=== PATIENT | female | born 1970 | race Caucasian/White ===

== ENCOUNTER 2017-01-17 12:59 | Inpatient (IN) | payer BC ==
[2017-01-17] MEDS ORDERED: cloNIDine 0.1 MG TAB ONE (13:35)
[2017-01-17 13:37] LABS: #Basophils 0.1 thou/uL (0.0-0.2); #Eosinphils 0.3 thou/uL (0.0-0.7); #Lymphocytes 1.4 thou/uL (1.20-3.40); #Monocytes 0.7 thou/uL (0.11-0.59); #Neutrophils 4.5 thou/uL (1.40-6.50); %Basophils 0.9 % (0.0-1.0); %Eosinophils 4.5 % (0.0-10.0); %Lymphocytes 20.2 % (21.0-51.0); %Monocytes 10.1 % (0.0-10.0); Hematocrit 51.1 % (36.0-47.0); Mean Platelet Volume 8.4 fL (7.4-10.4); Red Blood Cell (RBC) Count 5.86 mill/uL (4.20-5.40); White Blood Cell (WBC) Count 7.1 thou/uL (4.8-10.8)
[2017-01-17 13:59] LABS: ALT (SGPT) 18 U/L (8-55); AST (SGOT) 22 U/L (5-34); Alkaline Phosphatase 115 U/L (40-150); Anion Gap 17 mmol/L (10-20); BUN (Urea Nitrogen) 7 mg/dL (7.0-18.7); Bilirubin, Total 0.5 mg/dL (0.2-1.2); CK (CPK) 50 U/L (29-168); Calc. Creatinine Clearance 0 mL/min (70-130); Calcium 9.6 mg/dL (7.8-10.44); Carbon Dioxide 27 mmol/L (22-29); Chloride 101 mmol/L (98-107); Estimated GFR-MDRD 83; Globulin 3.6 g/dL (2.4-3.5); Lipase 65 U/L (8-78); Protein, Total 7.9 g/dL (6.0-8.3); Troponin I Less than 0.010 ng/mL (< 0.028)
--- NOTE | 2017-01-17 14:31 | RAD ---
ONE VIEW CHEST: Comparison: 06-15-14 History: Nausea, diarrhea. FINDINGS: Normal cardiac silhouette. Pulmonary vessels and hilum are normal. No consolidation or mass. No pneum othorax or osseous abnormalities. IMPRESSION: No acute cardiopulmonary process. POS: FARZADH
--- NOTE | 2017-01-17 14:55 | CT ---
NONCONTRAST HEAD CT: Comparison: 11-29-04 Technique: Noncontrast head CT is performed from skull base to skull vertex. FINDINGS: No parenchymal hemorrhage. No extraaxial hematoma. No midline shift. Basilar cisterns are patent. Brain volume is age appropriate. Cortical hernandez white matter differentiation is preserved. Ventricles and sulci are patent and symmetric. Hypodensity in the right aspect of the midbrain and precious, likely representing age indeterminate infar ct. Better interrogation with MRI is recommended. Calvarium is intact. Minimal mucosal thickening of the ethmoid air cells. There is left maxillary sin uses disease. Mastoid air cells are adequately aerated. IMPRESSION: Hypodensity in the right aspect of the midbrain and precious. Indeterminate infarct is suspected. Better interrogation with MRI of the brain is recommended. POS: JOY
[2017-01-17 15:55] LABS: Bilirubin Negative (Negative); Blood, Urine Small (Negative); Glucose, Urine (Dipstick) Negative (Negative); Ketone, Urine Negative (Negative); Nitrite Negative (Negative); Protein, Urine (Dipstick) 30 mg/dL (Neg-Trace)
[2017-01-17 16:05] LABS: RBC/HPF 0-3 HPF (0-3)
[2017-01-17 16:06] LABS: Bacteria/HPF 1+ HPF (None Seen); Yeast-All Forms Rare HPF (None Seen)
[2017-01-17 16:07] LABS: Amphetamine Not Detected (NotDetected); Methadone Not Detected (NotDetected); Methamphetamine Not Detected (NotDetected)
[2017-01-17 16:50] LABS: Troponin I Less than 0.010 ng/mL (< 0.028)
[2017-01-17] MEDS ORDERED: Labetalol HCl 100 MG/20 ML VIAL SLOW IVP PRN ×2 (18:11→19:16)
[2017-01-17] MEDS ORDERED: HYDROcodone/Acetaminophen 5/325 mg Tablet PO PRN (19:16)
[2017-01-17] MEDS ORDERED: Milk Of Magnesia 30 ML UDCUP PO PRN (19:16)
[2017-01-17] MEDS ORDERED: Ondansetron ODT 4 MG TAB PO PRN (19:16)
[2017-01-17] MEDS ORDERED: Lorazepam 1 MG TAB PO PRN (19:16)
[2017-01-17] MEDS ORDERED: Ondansetron HCl/PF 4 MG/2 ML Vial IVP PRN (19:16)
[2017-01-17] MEDS ORDERED: Lorazepam 2 MG/ML VIAL SLOW IVP PRN (19:16)
[2017-01-17] MEDS ORDERED: Acetaminophen 325 MG TAB PO PRN (19:16)
[2017-01-17] MEDS ORDERED: hydrALAZINE 25 MG TAB PO PRN (19:17)
[2017-01-17 19:50] LABS: Troponin I 0.011 ng/mL (< 0.028)
[2017-01-17] MEDS ORDERED: Atorvastatin Calcium 20 MG TAB PO SCH (21:00)
[2017-01-17] MEDS: Famotidine 20 MG TAB PO SCH (21:04)
[2017-01-17] MEDS: Metoprolol Tartrate 50 MG TAB PO SCH (21:05)
--- NOTE | 2017-01-17 23:18 | HP ---
PRIMARY CARE PHYSICIAN: The patient says she is actually in between primary care physicians. CHIEF COMPLAINT: Severe headache and elevated blood pressure. HISTORY OF PRESENT ILLNESS: Ms. Marsh is a pleasant 46-year-old female that has a history of hypert ension. She says she has had hypertension for over 20 years now. She says that she also has a long time history of headaches. She says that for the last 2 days, she has been having a really bad heada aminata and this morning it was much worse. She knows at sometimes the headaches are related to her bloo d pressure being high. For this reason, she checked her blood pressure and noted that it was extreme ly elevated. She says that she took her blood pressure medications and took a clonidine as she had b allann instructed to take it when it is elevated and laid down and to relax to see if it would go down. Normally the clonidine will work, but this time it did not. She says that if she got up and tried t o walk around her blood pressure was spike up. She also felt a pin pricking in her chest and for thi s reason she came to the emergency room for evaluation. She thought she would just be given some blo od pressure medicine and sent home, but instead her blood pressure was extremely high in the low 200 range and she is being admitted for further evaluation. Also, her who came in while we were talking says that he has noticed that his will sometimes have some jerking like movements and sh e looks like she is trying to talk, but she cannot talk and then will basically "fall asleep." He sa ys that this happened about 3 times and 11 years they have been and only last a few seconds, but the patient has no memory of this. It is also noted in the ER, she had a CT scan, which demonstr ated some hypodensities in the right midbrain and precious, which could be an old or an infarct, which wa s age indeterminate. REVIEW OF SYSTEMS: Constitutional: There have been no fevers, no chills, no night sweats, and no we ight loss. HEENT: She has had headaches which are chronic and usually on the right side, no visual changes, no sore throat, no rhinorrhea, neck pain, no adenopathy. Pulmonary: No hemoptysis, no coug h, no wheezing. Cardiovascular: She has had some pinprick like pains in her chest, but no PND, no o rthopnea. Gastrointestinal: No abdominal pain, no nausea, no vomiting, no change in bowels. Genito urinary: No urinary frequency, hematuria, no hesitancy. Neurologic: The patient's noted so me jerking like movements and with sounds almost like a seizure-like activity. Extremities: There i s no swelling, no edema. Skin and Integument: No skin changes. No rash. PAST MEDICAL HISTORY: Significant for hypertension and peptic ulcer disease as well as hypertensive urgency, admissions to the hospital back in 2010 and 2014. PAST SURGICAL HISTORY: She has had bilateral tubal ligation. FAMILY HISTORY: Significant for hypertension in her mother and grandmother as well as diabetes jefry fierros. SOCIAL HISTORY: She smokes about a pack a day. Denies any alcohol use. She is , has 4 child stoney. MEDICATIONS: The patient seemed a little unclear on her medications and her brought some in and these include clonidine 0.1 mg p.r.n., citalopram 40 mg daily, pantoprazole 40 mg daily, furosemi de 20 mg which she takes 1/2 tablet daily, metoprolol 100 mg twice a day, valsartan 160 mg daily, and she says there is a football-looking pill that she takes daily, she believes is guanfacine and she t hinks it is 5 mg and she does admit that she has been out of this medicine for a week. PHYSICAL EXAMINATION: GENERAL: She is alert and oriented. She appears to be in no acute distress. VITAL SIGNS: Her blood pressure when I see her is 190/93, heart rate is in the 80s, respiratory rate of 16, and temperature is 97.4. HEENT: Her pupils are equal, round, and reactive. Extraocular muscles are intact. Her sclerae are anicteric. Throat no erythema, no exudates. NECK: No adenopathy, no bruits. LUNGS: Clear, no wheezing, no rales. CARDIOVASCULAR: She has a normal S1, S2. I did not appreciate an S3 or S4. No murmurs, clicks, no rubs. ABDOMEN: Soft, nontender, nondistended. Positive for bowel sounds. There is no rebound, no guardin g. EXTREMITIES: There is no clubbing, cyanosis, no edema. NEUROLOGIC: Her exam is nonfocal. LABORATORY RESULTS: White blood cell count 7.1, hemoglobin 16.1, hematocrit is 51.1, platelet count is 322. Sodium 141, potassium 3.6, chloride is 101, CO2 is 27, BUN is 7, creatinine 0.75, glucose is 105, natriuretic peptide was elevated at 1045. Urine drug screen is negative. ASSESSMENT AND PLAN: 1. This is a pleasant 46-year-old female that presents to the hospital with hypertensive urgency. S he has a longstanding history of hypertension and in her last hospitalization, she was screened for r enal vascular disease with an ultrasound, which was essentially negative. The patient does continue to smoke, which is likely contributing to the resistant hypertension. She also admits to eating quit e a bit of lunch meats which are processed and could contribute as well and she also has a history of quite a bit of allergy symptoms, which she says are daily and her says that she snores and s he, therefore, may have some undiagnosed sleep apnea contributing to her resistant hypertension and t here may be some compliance issues as well. She will be admitted and started on her usual medication s. Her valsartan dose can be increased up to 320 and we will treat her with p.r.n. hydralazine and l abetalol as needed and titrate her medications. She says she had a bad reaction to amlodipine and th erefore, will avoid calcium channel blockers. 2. Possible acute stroke, it is in the area of the brain that is typically affected with hypertensio n. An MRI will be obtained to complete the evaluation and will also get an echocardiogram and caroti d Dopplers and start her on aspirin daily. 3. Possible seizure activity. She is at risk given that appears as if she has had a prior stroke or possibly even an acute stroke. We will consult Neurology to hear the description of her symptoms an d see if they would agree and whether or not antiepileptic medication is indicated. 4. Tobacco abuse. The patient was counseled on this and the dangers of smoking. 5. Possible undiagnosed obstructive sleep apnea. The patient was instructed to talk this over with her primary care physician and possibly even obtain an outpatient sleep study.
[2017-01-18 05:31] LABS: #Basophils 0.1 thou/uL (0.0-0.2); #Eosinphils 0.3 thou/uL (0.0-0.7); #Lymphocytes 1.8 thou/uL (1.20-3.40); #Monocytes 0.8 thou/uL (0.11-0.59); %Basophils 1.4 % (0.0-1.0); %Lymphocytes 30.5 % (21.0-51.0); %Monocytes 13.1 % (0.0-10.0); Hematocrit 44.2 % (36.0-47.0); Mean Platelet Volume 8.1 fL (7.4-10.4); Red Blood Cell (RBC) Count 4.93 mill/uL (4.20-5.40); White Blood Cell (WBC) Count 5.9 thou/uL (4.8-10.8)
[2017-01-18 05:55] LABS: Anion Gap 11 mmol/L (10-20); BUN (Urea Nitrogen) 8 mg/dL (7.0-18.7); Calc. Creatinine Clearance 112 mL/min (70-130); Calcium 9.1 mg/dL (7.8-10.44); Carbon Dioxide 29 mmol/L (22-29); Chloride 101 mmol/L (98-107); Cholesterol 162 mg/dl (< 200 Desired); Estimated GFR-MDRD Greater than 90; LDL Cholesterol, Calculated 100 mg/dL
--- NOTE | 2017-01-18 07:37 | ULT ---
BILATERAL CAROTID DUPLEX ULTRASOUND: Date: 01/17/17 HISTORY: Acute CVA. FINDINGS: Pillai scale, color flow, Doppler evaluation, and spectral analysis of the bilateral carotid arteries i s performed with 2D imaging. There is minimal atherosclerotic plaque seen in the region of the carotid bulbs bilaterally. There is less than 50% maximal stenosis within the bilateral internal carotid arteries according to t he peak systolic velocities and the ICA/CCA ratios. Peak systolic velocity in the right ICA is 99.7 c m/second, with an ICA/CCA ratio of 1.05. Peak systolic velocity in the left ICA is 86 cm/second, with an ICA/CCA ratio of 0.79. Antegrade flow is demonstrated in vertebral arteries bilaterally. IMPRESSION: No hemodynamically significant stenosis in the bilateral internal carotid arteries. POS: JOY
[2017-01-18] MEDS: Famotidine 20 MG TAB PO SCH (08:27)
[2017-01-18] MEDS: Metoprolol Tartrate 50 MG TAB PO SCH (08:33)
[2017-01-18] MEDS ORDERED: Valsartan 80 MG TAB PO SCH (09:00)
[2017-01-18] MEDS ORDERED: Aspirin 325 mg Enteric Coated Tablet PO SCH (09:00)
[2017-01-18] MEDS ORDERED: Enoxaparin Sodium 40 MG/0.4 ML SYRINGE SC SCH (09:00)
[2017-01-18] MEDS ORDERED: Furosemide 20 MG TAB PO SCH (09:00)
[2017-01-18] MEDS ORDERED: Citalopram 20 MG TAB PO SCH (09:00)
--- NOTE | 2017-01-18 10:07 | CON ---
NEUROLOGY CONSULTATION DATE OF CONSULTATION: 01/18/2017 CONSULTING PHYSICIAN: Hospitalist Service. IMPRESSION: 1. Vascular headache. 2. Labile hypertension with history of episodic encephalopathy secondary to this. PLAN: The patient can be discharged home. HISTORY OF PRESENT ILLNESS: Ms. Marsh is a 46-year-old female with a long history of hypertension. She has had very difficult of blood pressure problems. Her is seen 3 episodes where she suzan ears to be in an encephalopathic state with most seizure-like quality. This lasted a few minutes and then she appears very fatigued afterwards and has been 3 events in many years. Otherwise, she compl ains of some episodic sharp stabbing headaches. She presented to the emergency room yesterday with a headache with some nausea. There are no other focal symptoms associated with it. She had a CT of t he brain done, which showed a questionable area of ischemia in the precious. She had no associated verti go, slurred speech, double vision, vomiting, lateralized weakness or numbness. Her symptoms have res olved. She had a carotid ultrasound done, which showed some minimal alteration of velocities, but no thing significant and her blood pressure has settled down. She has no focal complaints at this point . Her EKG showed left atrial enlargement, left ventricular hypertrophy with a sinus rhythm. Laborat ory studies were unremarkable. PAST MEDICAL HISTORY: Hypertension. MEDICATIONS: As per chart. ALLERGIES: PENICILLIN and LATEX. SOCIAL HISTORY: No tobacco or alcohol use. FAMILY HISTORY: Noncontributory. REVIEW OF SYSTEMS: Otherwise, negative. PHYSICAL EXAMINATION: VITAL SIGNS: Stable. She is afebrile. HEENT: Pupils equal and reactive. Conjunctivae clear. Oropharynx clear. Cranium, normocephalic an d atraumatic. NECK: Supple, no lymphadenopathy noted. EXTREMITIES: No cyanosis, clubbing or edema. NEUROLOGIC: She is alert and appropriate. Her speech is fluent and clear. Her exam is nonfocal. SUMMARY: This is a middle-aged woman who presented with vascular type headache. She has had history of some other episodes associated with extreme hypertension, which I suspect are related to hyperten sive encephalopathy. There is no evidence of a stroke. I think she can be discharged home on curren t medications.
--- NOTE | 2017-01-18 11:16 | PDOC.PN ---
- Subjective Encounter Start Date: 01/18/17 Encounter Start Time: 11:14 Ms. Marsh was seen today in follow-up of elevated blood pressure. - Objective Resuscitation Status: Resuscitation Status FULL:Full Resuscitation MAR Reviewed: Yes Vital Signs & Weight: Vital Signs (12 hours) Temp Pulse Resp BP BP Pulse Ox 01/18/17 08:30 72 16 177/88 H 01/18/17 08:00 97.7 F 72 16 01/18/17 07:43 97.7 F 70 18 96/86 98 01/18/17 06:40 72 158/73 H 01/18/17 05:12 66 180/84 H 01/18/17 05:11 66 180/84 H 01/18/17 04:08 97.6 F 71 16 183/86 H 95 01/18/17 00:19 97.8 F 68 16 186/64 H 96 Weight Weight 144 lb I&O: 01/17/17 01/18/17 01/19/17 06:59 06:59 06:59 Intake Total 600 480 Balance 600 480 Result Diagrams: 01/18/17 05:11 01/18/17 05:11 Phys Exam - Physical Examination HEENT: PERRLA Respiratory: no wheezing, no rales, no rhonchi, clear to auscultation bilateral Cardiovascular: RRR, no significant murmur Gastrointestinal: soft, non-tender, positive bowel sounds Musculoskeletal: no edema Dx/Plan (1) Hypertensive urgency Code(s): I16.0 - HYPERTENSIVE URGENCY Status: Acute (2) Hypertensive encephalopathy Code(s): I67.4 - HYPERTENSIVE ENCEPHALOPATHY Status: Acute (3) Tobacco abuse Code(s): Z72.0 - TOBACCO USE Status: Acute - Plan * Hypertension- not optimally controlled- will continue Diovan at the higher dose, and again stressed smoking cessation, and the avoidance of processed foods , and to be screened for Sleep apnea * Will check Echo, either in house or as outpatient .
[2017-01-18 11:39] VITALS: BP 179/84; TEMP 97.6
--- NOTE | 2017-01-18 15:59 | DIS ---
DATE OF ADMISSION: 01/17/2017 DATE OF DISCHARGE: 01/18/2017 DISCHARGE DISPOSITION: Home. PRIMARY DISCHARGE DIAGNOSES: 1. Hypertensive urgency. 2. Hypertensive encephalopathy. 3. Tobacco abuse. 4. History of peptic ulcer disease. DISCHARGE MEDICATIONS: The patient's Diovan dose was increased from 160 to 320. She is to continue Protonix 40 mg daily, Lopressor 100 mg twice a day, guanfacine 5 mg at bedtime, Lasix 10 mg daily, cl onidine 0.1 mg twice a day as needed, Celexa 40 mg daily, Lipitor 10 mg at bedtime, and aspirin 81 mg a day. CODE STATUS: FULL CODE. ALLERGIES: LASIX and PENICILLIN. PROCEDURES DONE DURING ADMISSION: The patient had bilateral carotid Dopplers, which were negative. The patient also will have an echocardiogram done. HOSPITAL COURSE: Ms. Marsh is a pleasant 46-year-old female, who was admitted to the hospital after having a severe headache and also noted to have an elevated blood pressure. She was admitted for hy pertensive urgency and was treated with p.r.n. labetalol in addition to her usual home medications. Her dose of Diovan was increased from 160 to 320. She smokes about a pack of cigarettes a day and I explained to her that smoking cessation will help her blood pressure get possibly lowered up to 10 to 15 points off the systolic. She also gave some symptoms of chronic allergies, and she may have some undiagnosed obstructive sleep apnea, which could also lower her blood pressure by several points as well, and also, to monitor her consumption of processed foods, which could further lower her pressure . She was seen by Neurology during her hospital stay for some questions on her CT scan, which appear ed consistent with a possible stroke. Dr. Sorenson felt that the changes were not related to ischemic stroke and possibly could be due to hypertensive changes and that an MRI was not necessary. Therefo re, this was canceled. The echo will be done, because she had an elevated natriuretic peptide in the setting of longstanding hypertension. This will be done prior to discharge. Since , if the echo cannot be done within the next few hours we will go ahead and let her go home since she is clinically stable and then the echo can be followed up in the outpatient setting. Therefore, the patient will be discharged home today with close outpatient followup.
== END 2017-01-18 13:10 | disposition home or self-care (01) | DRG 305 ==
LOC: SCSER 12:59 → 2SE 14:55 → OBSVTOIN 14:55
PROVIDERS: ADMIT Internal Medicine Infectious Disease; ATTEND Internal Medicine Infectious Disease
DX: I16.0 Hypertensive urgency (principal); I67.4 Hypertensive encephalopathy; G44.1 Vascular headache, not elsewhere classified; F17.210 Nicotine dependence, cigarettes, uncomplicated; Z91.040 Latex allergy status; Z88.0 Allergy status to penicillin; Z87.11 Personal history of peptic ulcer disease; Z82.61 Family history of arthritis; Z82.49 Family history of ischemic heart disease and other diseases of the circulatory system; Z83.3 Family history of diabetes mellitus
CPT/HCPCS: 36415; 70450; 71010; 80048; 80053; 80061; 80306; 81003; 81015; 82553; 83690; 83880; 84484; 85025; 93005; 93306; 93880; J1650

== ENCOUNTER 2017-07-26 08:10 | Outpatient (CLI) | payer BC ==
[2017-07-26] MEDS ORDERED: ISOVUE-370 76%-LOCM 1 ML ONE (11:40)
== END 2017-07-26 08:11 | disposition home or self-care (01) ==
LOC: BICCT 08:10
PROVIDERS: ATTEND Internal Medicine Hematology & Oncology
DX: C50.411 Malignant neoplasm of upper-outer quadrant of right female breast (principal); R59.0 Localized enlarged lymph nodes; K21.9 Gastro-esophageal reflux disease without esophagitis
CPT/HCPCS: 71260; 74177

== ENCOUNTER 2017-08-21 09:02 | Observation (INO) | payer BC, OTHER ==
[2017-08-21] MEDS ORDERED: Dexamethasone 10 MG/ML VIAL SLOW IVP SCH (09:45)
[2017-08-21] MEDS ORDERED: PALONOSETRON HCL 0.05 MG/ML 5 ML VIAL IVP SCH (09:45)
[2017-08-21] MEDS ORDERED: DOXORUBICIN 100 MG in Sodium Chloride 0.9% 50 ML SLOW IVP SCH (10:00)
[2017-08-21] MEDS ORDERED: Pegfilgrastim 6 MG/0.6 ML Delivery Kit SQ SCH (10:00)
[2017-08-21] MEDS ORDERED: Cyclophosphamide 1 GM in Sodium Chloride 0.9% 250 ML 250 ML IVPB SCH ×2 (10:15→10:30)
[2017-08-21] MEDS ORDERED: Lorazepam 2 MG/ML VIAL SLOW IVP SCH (10:15)
[2017-08-21] MEDS ORDERED: cloNIDine 0.2 MG TAB PO SCH (10:15)
[2017-08-21] MEDS ORDERED: Amlodipine 5 MG TAB PO SCH ×2 (12:15→13:30)
[2017-08-21] MEDS ORDERED: Acetaminophen 500 MG TAB PO SCH (13:30)
[2017-08-21] MEDS ORDERED: cloNIDine 0.1 MG TAB PO PRN (18:02)
[2017-08-21] MEDS ORDERED: Labetalol HCl 100 MG/20 ML VIAL SLOW IVP PRN (18:02)
[2017-08-21] MEDS ORDERED: Ondansetron ODT 4 MG TAB PO PRN (18:17)
[2017-08-21] MEDS ORDERED: Prochlorperazine Maleate 5 MG TAB PO PRN (18:25)
[2017-08-21] MEDS: Sodium Chloride 0.9% 40 ML ONE ×2 (18:45→20:23)
[2017-08-21] MEDS ORDERED: Ondansetron HCl/PF 4 MG/2 ML Vial IVP PRN (18:55)
[2017-08-21] MEDS ORDERED: Acetaminophen 650 MG Suppository PR PRN (18:55)
[2017-08-21] MEDS ORDERED: Bisacodyl 5 MG TAB PO PRN (18:55)
[2017-08-21] MEDS ORDERED: Acetaminophen 325 MG TAB PO PRN (18:55)
[2017-08-21] MEDS ORDERED: Metoclopramide HCl 10 MG/2 ML VIAL IVP PRN (18:56)
[2017-08-21] MEDS ORDERED: diphenhydrAMINE 50 MG/ML VIAL IVP PRN (18:57)
[2017-08-21 19:12] VITALS: BMI 23.1
[2017-08-21] MEDS: Metoprolol Tartrate 100 MG TAB PO SCH (20:21)
[2017-08-21] MEDS: hydrALAZINE 25 MG TAB PO SCH (20:21)
[2017-08-21] MEDS: Docusate 100 MG CAP PO SCH (20:22)
[2017-08-21] MEDS: Ketorolac Tromethamine 30 MG/ML VIAL IVP PRN (20:22)
[2017-08-21] MEDS ORDERED: Famotidine 20 MG TAB PO SCH (21:00)
[2017-08-21] MEDS ORDERED: Atorvastatin Calcium 10 MG TAB PO SCH (21:00)
[2017-08-21] MEDS ORDERED: Metoprolol Tartrate 100 MG TAB PO SCH (21:00)
[2017-08-21] MEDS ORDERED: guanFACINE HCl 1 MG TAB PO SCH (21:00)
[2017-08-22] MEDS: hydrALAZINE 20 MG/ML VIAL SLOW IVP PRN ×2 (00:14→04:43)
--- NOTE | 2017-08-22 02:35 | HP ---
PRIMARY CARE PHYSICIAN: Idalia Grey, sees a new doctor at [facility], she cannot remember the name. REASON FOR ADMISSION: Uncontrolled hypertension. HISTORY OF PRESENT ILLNESS: This is a 47-year-old white female with a longstanding history of difficult to control blood pressure, who has been admitted intermittently in the past for hypertensive urgency, emergency, and headaches. She was recently diagnosed with breast cancer as a large left breast mass, want to see Dr. Tapia and is going to get chemotherapy to shrink the tumor before it can be resected. The patient presented for her first chemotherapy today, her blood pressure was severely elevated with the systolics in the 220s to 250s and diastolics in the 110s to 120s. She was having a headache, although she gets daily headaches and this is not specifically unusual for her. The patient had 2 doses of amlodipine and clonidine 0.2 mg given in Oncology and then we were asked to admit the patient to control the blood pressure to try her chemotherapy tomorrow instead. Patient now that she got to the floor after the initial doses of medicines yesterday, her blood pressure is now 140s systolic. She does report that she has had a problem with amlodipine in the past causing severe abdominal cramping that she is not having any of that currently. PAST MEDICAL HISTORY: 1. Hypertension, poorly controlled. 2. Peptic ulcer disease. 3. Right breast cancer. 4. Questionable elevated cholesterol. PAST SURGICAL HISTORY: Bilateral tubal ligation. SOCIAL HISTORY: The patient smokes a half pack per day, used to smoke a pack per day and is cutting down. No alcohol or illicit drug use. She is in a long- term relationship and has 4 children. FAMILY HISTORY: Significant for hypertension in her mother and grandmother as well as diabetes mellitus. ALLERGIES: 1. LATEX. 2. PENICILLIN. CURRENT MEDICATIONS: 1. Aspirin 81 mg daily. 2. Atorvastatin 10 mg at night. 3. Celexa 40 mg daily. 4. Clonidine 0.1 mg twice a day as needed for severe hypertension. 5. Furosemide 10 mg daily. 6. Guanfacine 5 mg at night. 7. Metoprolol 100 mg twice a day. 8. Zofran 4 mg as needed for nausea. 9. Protonix 40 mg daily. 10. Prochlorperazine 10 mg q.6 hours as needed for nausea and vomiting. 11. Diovan 320 mg daily. REVIEW OF SYSTEMS: Constitutional: No fevers, no chills. Eyes: She has chronic blurred vision. ENT: No congestion, drainage or sore throat. Cardiovascular: No chest pain, no palpitations or racing heart. Pulmonary: No coughing, wheezing or shortness of breath. Gastrointestinal: No abdominal pain, no nausea or vomiting, no diarrhea or constipation. Genitourinary: No dysuria or hematuria. Musculoskeletal: No muscle aches or joint pains. Skin: No rashes or other lesions noted. Neurologic: She does have a headache sharp stabbing pain in her left parietal region, this is chronic for her. She has these headaches almost every day and she relates to her high blood pressure. This is uncertain if it causes them or if it is caused by the high blood pressure. PHYSICAL EXAMINATION: VITAL SIGNS: Blood pressure 140/80, pulse 61, respirations 16, temperature 97.4 , O2 sat 96% on room air. GENERAL: This is a well-developed, thin white female in no acute distress. HEENT: Pupils are equal, round, and reactive to light. Oropharynx clear without lesions, erythema or exudate. NECK: Supple, no lymphadenopathy, no thyroid nodules or enlargement, no JVD. HEART: Regular rate and rhythm, no murmurs, rubs or gallops. LUNGS: Clear to auscultation bilaterally. No wheezes, crackles or rhonchi. ABDOMEN: Soft, nontender to palpation, normoactive bowel sounds. No hepatosplenomegaly, no masses. EXTREMITIES: No clubbing, cyanosis or edema. SKIN: No rashes or lesions noted. NEUROLOGIC: Intact sensation and strength in all extremities. No facial droop. LABORATORY DATA: Complete metabolic panel done earlier today showed a carbon dioxide of 31, BUN of 6, direct bilirubin 0.4, total bilirubin 0.9, AST of 36, alkaline phosphatase of 240 and lactate dehydrogenase 247 and the rest was normal. ASSESSMENT AND PLAN: 1. Hypertensive urgency, now improved after amlodipine and clonidine earlier in the morning. We will resume patient's home blood pressure medications and also going to add hydralazine 3 times a day. The patient is very resistant use of amlodipine due to previous abdominal cramping with it, so will hold off on that one for now. I will give her p.r.n. labetalol if her pulse is at high enough and p.r.n. hydralazine as needed. She may also benefit from another calcium channel em if she can tolerate amlodipine. I am going to get a Cardiology consult for her. She is going to need both inpatient and then later on outpatient better management of her blood pressure. 2. Breast cancer. We will reattempt chemotherapy tomorrow. 3. Active tobacco abuse. [employer] patient and states that she has been cutting down on her cigarettes and now she has set a quit date and we will continue counseling her on and encouraged her to quit smoking during hospitalization. 4. Gastrointestinal prophylaxis. Continue patient's Protonix. 5. Headache, this sounds like migrainous headaches. Apparently, the patient was on hydrocodone frequently with her previous PCP for these, which may have increased the frequency. We will try some IV Reglan with Benadryl here in the hospital and we will also give her a dose of Toradol and some Tylenol. CODE STATUS: I did discuss with the patient. She is a FULL CODE. Should she be incapacitated, she stated that her mother will be her medical decision maker. Her mother's name is Sherley Rachidtyler. ALECIA
[2017-08-22 05:00] LABS: #Basophils 0.1 thou/uL (0.0-0.2); #Eosinphils 0.2 thou/uL (0.0-0.7); #Lymphocytes 1.6 thou/uL (1.20-3.40); #Monocytes 0.5 thou/uL (0.11-0.59); #Neutrophils 4.2 thou/uL (1.40-6.50); %Basophils 0.9 % (0.0-1.0); %Eosinophils 3.2 % (0.0-10.0); %Lymphocytes 24.2 % (21.0-51.0); %Neutrophils 64.8 % (42.0-75.0); Hemoglobin 15.3 g/dL (12.0-16.0); Mean Corpuscular HGB CONC 33.7 g/dL (32.0-36.0); Mean Corpuscular Hemoglobin 28.7 pg (27.0-31.0); Mean Platelet Volume 7.6 fL (7.4-10.4); Platelet Count 268 thou/uL (130-400); RBC Distribution Width 12.8 % (11.5-14.5); Red Blood Cell (RBC) Count 5.34 mill/uL (4.20-5.40); White Blood Cell (WBC) Count 6.5 thou/uL (4.8-10.8)
[2017-08-22 05:17] LABS: Anion Gap 11 mmol/L (10-20); BUN (Urea Nitrogen) 8 mg/dL (7.0-18.7); Calc. Creatinine Clearance 105 mL/min (70-130); Calcium 9.6 mg/dL (7.8-10.44); Carbon Dioxide 31 mmol/L (22-29); Chloride 99 mmol/L (98-107); Estimated GFR-MDRD Greater than 90; Glucose 109 mg/dL (70-105); Potassium 3.1 mmol/L (3.5-5.1); Sodium 138 mmol/L (136-145)
[2017-08-22] MEDS ORDERED: Citalopram 20 MG TAB PO SCH (09:00)
[2017-08-22] MEDS ORDERED: Non-Formulary Item 1 EACH (Valsartan [Diovan] 320 MG) PO SCH (09:00)
[2017-08-22] MEDS ORDERED: Furosemide 20 MG TAB PO SCH (09:00)
[2017-08-22] MEDS ORDERED: Valsartan 80 MG TAB PO SCH (09:00)
[2017-08-22] MEDS: hydrALAZINE 25 MG TAB PO SCH (09:14)
[2017-08-22] MEDS: Docusate 100 MG CAP PO SCH (09:14)
[2017-08-22] MEDS: Metoprolol Tartrate 100 MG TAB PO SCH (09:15)
[2017-08-22] MEDS ORDERED: Cyclophosphamide 1 GM in Sodium Chloride 0.9% 250 ML 250 ML IVPB SCH (09:45)
--- NOTE | 2017-08-22 09:59 | PDOC.PN ---
- Subjective Encounter Start Date: 08/22/17 Encounter Start Time: 10:50 Subjective: Patient's SINGH resolved with Toradol yesterday. Some recurrence this AM. -: BP spiked overnight but better this AM. - Objective Resuscitation Status: Resuscitation Status FULL:Full Resuscitation MAR Reviewed: Yes Vital Signs & Weight: Vital Signs (12 hours) Temp Pulse Resp BP BP Pulse Ox 08/22/17 07:30 97.6 F 64 16 143/80 H 94 L 08/22/17 05:40 66 140/69 08/22/17 04:43 97.5 F L 54 L 14 192/87 H 95 08/22/17 00:16 69 145/87 H 08/22/17 00:14 61 212/108 H 08/22/17 00:10 212/104 H 08/21/17 23:45 97.2 F L 61 16 95 08/21/17 22:10 60 199/115 H Weight Weight 143 lb 6.4 oz I&O: 08/21/17 08/22/17 08/23/17 06:59 06:59 06:59 Intake Total 273 Balance 273 Result Diagrams: 08/22/17 04:42 08/22/17 04:42 Phys Exam - Physical Examination Constitutional: NAD HEENT: moist MMs Respiratory: no wheezing, no rales, no rhonchi Cardiovascular: RRR, no significant murmur Gastrointestinal: soft, non-tender, positive bowel sounds Neurological: non-focal, moves all 4 limbs Psychiatric: normal affect, A&O x 3 Dx/Plan (1) Hypertensive urgency Code(s): I16.0 - HYPERTENSIVE URGENCY Status: Acute Comment: BP labile overnight. Better after morning meds. Asymptomatic. Likely worsened by anxiety about starting chemo yesterday. (2) Breast cancer, right Code(s): C50.911 - MALIGNANT NEOPLASM OF UNSP SITE OF RIGHT FEMALE BREAST Status: Acute Comment: instituting chemotherapy to shrink tumor for resection , Dr. Tapia is the oncologist (3) PUD (peptic ulcer disease) Code(s): K27.9 - PEPTIC ULC, SITE UNSP, UNSP AC OR CHR, W/O HEMOR OR PERF Status: Chronic Comment: on Protonix (4) Hyperlipidemia Code(s): E78.5 - HYPERLIPIDEMIA, UNSPECIFIED Status: Chronic Comment: on statin (5) Migraine Code(s): G43.909 - MIGRAINE, UNSP, NOT INTRACTABLE, WITHOUT STATUS MIGRAINOSUS Status: Acute - Plan cont current plan of care, DVT proph w/SCDs BP improved. Will d/c home after finishing chemotherapy today. F/u with PCP -: and recommend outpatient nephrology for w/u of sources of longstanding -: difficult to control HTN. * . - Discharge Day Encounter end time: 11:10
[2017-08-22] MEDS ORDERED: DOXORUBICIN 100 MG in Sodium Chloride 0.9% 50 ML SLOW IVP SCH (10:00)
[2017-08-22] MEDS ORDERED: Dexamethasone 10 MG/ML VIAL SLOW IVP SCH (10:00)
[2017-08-22] MEDS ORDERED: Pegfilgrastim 6 MG/0.6 ML Delivery Kit SQ SCH (10:00)
[2017-08-22] MEDS ORDERED: Potassium Chloride 20 MEQ TAB PO SCH (10:00)
[2017-08-22] MEDS ORDERED: PALONOSETRON HCL 0.05 MG/ML 5 ML VIAL IVP SCH (10:00)
[2017-08-22] MEDS ORDERED: NIFEdipine XL 60 MG TAB PO SCH (10:30)
[2017-08-22] MEDS: Ketorolac Tromethamine 30 MG/ML VIAL IVP PRN (11:21)
[2017-08-22 11:28] VITALS: BP 133/72
[2017-08-22 12:32] VITALS: TEMP 97.3
--- NOTE | 2017-08-23 02:56 | DIS ---
PRIMARY CARE PHYSICIAN: Idalia motley, sees a doctor at [facility]. REASON FOR ADMISSION: Uncontrolled hypertension. DIAGNOSES AT DISCHARGE: 1. Hypertensive urgency, resolved. 2. Chronic labile hypertension. 3. Hyperlipidemia. 4. Frequent migraines. 5. Peptic ulcer disease. 6. Right breast cancer, instituting chemotherapy. PROCEDURES: None. CONSULTATIONS: None. SUMMARY OF HOSPITAL COURSE: This is a 47-year-old white female, patient of Dr. Tapia, who has a lo ngstanding history of [id number]-[id number] labile hypertension. She is recently diagnosed with a rig ht breast cancer mass, seeing Dr. Tapia who was supposed to institute chemotherapy yesterday to shr ink the mass before surgery. The patient was very anxious when she came in, in spite of an Ativan gi alex by Dr. Tapia. Her blood pressure was repeatedly 250 systolic, as well as severely elevated on the diastolic range. She had clonidine 0.2 mg and 2 doses of amlodipine, and eventually was put in o bservation to try and control her blood pressure before instituting her chemotherapy. We did adjust the patient's medications and started hydralazine orally along with some IV as needed, and after disc ussing with and Dr. Rosario decided to put the patient on Procardia XL, as she has had past med re actions to amlodipine and does not want to take it, but she did not have any of the reported stomach cramps that she gets when she was given amlodipine downstairs. The patient had some labile blood pre ssures overnight as high as 200 systolic. However, this morning, her blood pressure dropped to 140/7 0 and she was able to get her chemotherapy instituted. The patient was doing well and is being disch arged home after chemotherapy. DISCHARGE MANAGEMENT: Discharged home. Follow up with her primary care physician and also consider seeing a security installation technician in the next 2-3 weeks to work up the source of her severe blood pressure elevat ions. Contact information for Dr. Blount was given. The patient also needs followup with the [facility]cology [facility] on 09/04/2017 at 10:15 a.m. her chemotherapy. ACTIVITY: As tolerated. DIET: Healthy heart, low-sodium diet. MEDICATIONS: 1. Aspirin 81 mg daily. 2. Atorvastatin 10 mg at night. 3. Celexa 40 mg daily. 4. Clonidine as needed. 5. Furosemide 10 mg daily. 6. Guanfacine 5 mg at night. 7. Hydralazine 25 mg, 3 times a day, 90 tablets dispensed. 8. Metoprolol 100 mg twice a day. 9. Nifedipine extended release 60 mg daily, 30 tablets dispensed. 10. Zofran as needed. 11. Protonix 40 mg daily. 12. Compazine as needed. 13. Valsartan 320 mg daily.
[2017-08-23] MEDS ORDERED: NIFEdipine XL 60 MG TAB PO SCH (09:00)
== END 2017-08-22 14:34 | disposition home or self-care (01) ==
LOC: ONC/OP 09:02 → 2SW 15:38 → INTOOBSV 15:38
PROVIDERS: ADMIT Internal Medicine Hematology & Oncology; ATTEND Internal Medicine Hematology & Oncology
DX: I16.0 Hypertensive urgency (principal); E78.5 Hyperlipidemia, unspecified; G43.909 Migraine, unspecified, not intractable, without status migrainosus; K27.9 Peptic ulcer, site unspecified, unspecified as acute or chronic, without hemorrhage or perforation; C50.911 Malignant neoplasm of unspecified site of right female breast; K21.9 Gastro-esophageal reflux disease without esophagitis; D64.9 Anemia, unspecified; F17.210 Nicotine dependence, cigarettes, uncomplicated; Z79.82 Long term (current) use of aspirin; Z79.899 Other long term (current) drug therapy; Z91.040 Latex allergy status; Z88.0 Allergy status to penicillin
CPT/HCPCS: 36415; 80048; 80053; 82248; 83615; 84100; 84550; 85025; 96367; 96372; 96375; 96376; 96377; 96413; 96417; 99213; A4216; G0378; G0463; J0360; J1100; J1200; J1453; J1642; J1885; J2060; J2469; J2505; J2765; J7050; J9000; J9070

== ENCOUNTER 2017-09-04 11:57 | Day surgery (SDC) | payer BC, OTHER ==
[2017-09-04] MEDS ORDERED: Dexamethasone 10 MG/ML VIAL SLOW IVP SCH (12:30)
[2017-09-04] MEDS ORDERED: PALONOSETRON HCL 0.05 MG/ML 5 ML VIAL IVP SCH (12:30)
[2017-09-04] MEDS ORDERED: Cyclophosphamide 1 GM in Sodium Chloride 0.9% 250 ML 250 ML IVPB SCH (13:00)
[2017-09-04] MEDS ORDERED: DOXORUBICIN 100 MG in Sodium Chloride 0.9% 50 ML SLOW IVP SCH (13:00)
[2017-09-04] MEDS ORDERED: Sodium Chloride 0.9% 10 ML ONE (13:14)
[2017-09-04 13:22] VITALS: BP 161/93; TEMP 97.9
[2017-09-04] MEDS ORDERED: Pegfilgrastim 6 MG/0.6 ML Delivery Kit SQ SCH (15:00)
== END 2017-09-04 15:58 | disposition home or self-care (01) ==
LOC: ONC/OP 11:57
PROVIDERS: ATTEND Internal Medicine Hematology & Oncology
DX: Z51.11 Encounter for antineoplastic chemotherapy (principal); C50.411 Malignant neoplasm of upper-outer quadrant of right female breast; I10 Essential (primary) hypertension; K21.9 Gastro-esophageal reflux disease without esophagitis; F17.200 Nicotine dependence, unspecified, uncomplicated; Z88.0 Allergy status to penicillin; Z91.040 Latex allergy status; Z79.899 Other long term (current) drug therapy
CPT/HCPCS: 80053; 82248; 83615; 84100; 84550; 96367; 96375; 96377; 96413; 96417; A4216; J1100; J1453; J2469; J2505; J7050; J9000; J9070

== ENCOUNTER 2017-09-18 11:38 | Day surgery (SDC) | payer BC ==
[2017-09-18] MEDS ORDERED: Sodium Chloride 0.9% 30 ML ONE (11:54)
[2017-09-18] MEDS ORDERED: Cyclophosphamide 1 GM in Sodium Chloride 0.9% 250 ML 250 ML IVPB SCH ×2 (12:00→12:15)
[2017-09-18] MEDS ORDERED: PRE FILLED SLOW IVP SCH (12:00)
[2017-09-18] MEDS ORDERED: DOXORUBICIN SLOW IVP SCH (12:00)
[2017-09-18] MEDS ORDERED: Pegfilgrastim 6 MG/0.6 ML Delivery Kit SQ SCH (12:00)
[2017-09-18] MEDS ORDERED: PALONOSETRON HCL 0.05 MG/ML 5 ML VIAL IVP SCH (12:00)
[2017-09-18] MEDS ORDERED: Dexamethasone 10 MG/ML VIAL SLOW IVP SCH (12:00)
[2017-09-18] MEDS ORDERED: DOXORUBICIN 100 MG in Sodium Chloride 0.9% 50 ML SLOW IVP SCH (12:15)
[2017-09-18 13:15] VITALS: BP 155/97; TEMP 97.8
== END 2017-09-18 15:43 | disposition home or self-care (01) ==
LOC: ONC/OP 11:38
PROVIDERS: ATTEND Internal Medicine Hematology & Oncology
DX: Z51.11 Encounter for antineoplastic chemotherapy (principal); C50.411 Malignant neoplasm of upper-outer quadrant of right female breast; K21.9 Gastro-esophageal reflux disease without esophagitis; D64.9 Anemia, unspecified; I10 Essential (primary) hypertension; F17.210 Nicotine dependence, cigarettes, uncomplicated; Z91.040 Latex allergy status; Z88.0 Allergy status to penicillin
CPT/HCPCS: 36415; 80053; 82248; 83615; 84100; 84550; 96367; 96375; 96377; 96413; 96415; 96417; A4216; J1100; J1453; J1642; J2469; J2505; J7050; J9000; J9070

== ENCOUNTER 2017-10-02 12:34 | Day surgery (SDC) | payer BC ==
[2017-10-02] MEDS ORDERED: Dexamethasone 10 MG/ML VIAL SLOW IVP SCH (13:00)
[2017-10-02] MEDS ORDERED: PALONOSETRON HCL 0.05 MG/ML 5 ML VIAL IVPB SCH (13:00)
[2017-10-02] MEDS ORDERED: Pegfilgrastim 6 MG/0.6 ML Delivery Kit SQ SCH (13:00)
[2017-10-02] MEDS ORDERED: DOXORUBICIN 100 MG in Sodium Chloride 0.9% 50 ML IVPB SCH (13:15)
[2017-10-02] MEDS ORDERED: DOXORUBICIN 100 MG in Sodium Chloride 0.9% 50 ML SLOW IVP SCH (13:15)
[2017-10-02] MEDS ORDERED: Cyclophosphamide 1 GM in Sodium Chloride 0.9% 250 ML 250 ML IVPB SCH (13:15)
[2017-10-02 16:06] LABS: Bilirubin Small (Negative); Blood, Urine Negative (Negative); Clarity CLOUDY (Clear); Glucose, Urine (Dipstick) Negative (Negative); Leukocyte Moderate (Negative); Nitrite Positive (Negative); Protein, Urine (Dipstick) 100 mg/dL (Neg-Trace); Specific Gravity, Urine 1.023 (1.002-1.036)
[2017-10-02 16:08] LABS: Bacteria/HPF Rare-Few HPF (None Seen); Hyaline Casts/LPF 0-3 HYALINE CAST LPF (0-3 Hyaline); Pathc Cast-AUWi Flag 0.29 (0-2.49)
[2017-10-02 16:17] LABS: RBC/HPF 0-3 HPF (0-3)
== END 2017-10-02 16:04 | disposition home or self-care (01) ==
LOC: ONC/OP 12:34
PROVIDERS: ATTEND Internal Medicine Hematology & Oncology
DX: Z51.11 Encounter for antineoplastic chemotherapy (principal); C50.411 Malignant neoplasm of upper-outer quadrant of right female breast; K21.9 Gastro-esophageal reflux disease without esophagitis; D64.9 Anemia, unspecified; I10 Essential (primary) hypertension; F17.210 Nicotine dependence, cigarettes, uncomplicated; Z91.040 Latex allergy status; Z88.0 Allergy status to penicillin; Z79.899 Other long term (current) drug therapy
CPT/HCPCS: 36415; 80053; 81001; 82248; 83615; 84100; 84550; 96367; 96375; 96377; 96413; 96417; J1100; J1453; J2469; J2505; J7050; J9000; J9070

== ENCOUNTER 2017-10-23 11:55 | Day surgery (SDC) | payer BC ==
[2017-10-23] MEDS ORDERED: PACLitaxel 140 MG in Sodium Chloride 0.9% 250 ML 250 ML IVPB SCH (12:30)
[2017-10-23] MEDS ORDERED: Dexamethasone 10 MG/ML VIAL SLOW IVP SCH (12:30)
[2017-10-23] MEDS ORDERED: Sodium Chloride 0.9% 30 ML ONE (12:38)
[2017-10-23] MEDS ORDERED: Dexamethasone 10 MG in Sodium Chloride 0.9% 50 ML IVPB SCH (12:45)
[2017-10-23 15:39] VITALS: BP 145/96; TEMP 97.8
== END 2017-10-23 15:54 | disposition home or self-care (01) ==
LOC: ONC/OP 11:55
PROVIDERS: ATTEND Internal Medicine Hematology & Oncology
DX: Z51.11 Encounter for antineoplastic chemotherapy (principal); C50.411 Malignant neoplasm of upper-outer quadrant of right female breast; Z88.0 Allergy status to penicillin; Z91.040 Latex allergy status
CPT/HCPCS: 80053; 82248; 83615; 84100; 84550; 96375; 96413; A4216; J1100; J1642; J7050; J9267

== ENCOUNTER 2017-10-30 15:20 | Day surgery (SDC) | payer BC ==
[2017-10-30] MEDS ORDERED: Sodium Chloride 0.9% 20 ML ONE (15:26)
[2017-10-30] MEDS ORDERED: PACLitaxel 140 MG in Sodium Chloride 0.9% 250 ML 250 ML IVPB SCH (15:30)
[2017-10-30] MEDS ORDERED: Dexamethasone 4 mg/ml Vial SLOW IVP SCH (15:30)
[2017-10-30 15:31] VITALS: TEMP 98.3
[2017-10-30] MEDS ORDERED: cloNIDine 0.2 MG TAB PO SCH (15:45)
[2017-10-30 16:12] VITALS: BP 181/103
== END 2017-10-30 17:57 | disposition home or self-care (01) ==
LOC: ONC/OP 15:20
PROVIDERS: ATTEND Internal Medicine Hematology & Oncology
DX: Z51.11 Encounter for antineoplastic chemotherapy (principal); C50.411 Malignant neoplasm of upper-outer quadrant of right female breast; Z88.0 Allergy status to penicillin; Z91.040 Latex allergy status
CPT/HCPCS: 96375; 96413; A4216; J1100; J1642; J7050; J9267

== ENCOUNTER 2017-11-06 14:16 | Day surgery (SDC) | payer BC ==
[2017-11-06 14:39] VITALS: BP 139/84; TEMP 98.2
[2017-11-06] MEDS ORDERED: Sodium Chloride 0.9% 30 ML ONE (14:39)
[2017-11-06] MEDS ORDERED: Dexamethasone 10 MG in Sodium Chloride 0.9% 50 ML IVPB SCH (14:45)
[2017-11-06] MEDS ORDERED: PACLitaxel 140 MG in Sodium Chloride 0.9% 250 ML 250 ML IVPB SCH (14:45)
== END 2017-11-06 16:54 | disposition home or self-care (01) ==
LOC: ONC/OP 14:16
PROVIDERS: ATTEND Internal Medicine Hematology & Oncology
DX: Z51.11 Encounter for antineoplastic chemotherapy (principal); C50.411 Malignant neoplasm of upper-outer quadrant of right female breast; K21.9 Gastro-esophageal reflux disease without esophagitis; I10 Essential (primary) hypertension; F17.210 Nicotine dependence, cigarettes, uncomplicated; Z79.82 Long term (current) use of aspirin; Z79.899 Other long term (current) drug therapy; Z88.0 Allergy status to penicillin; Z91.040 Latex allergy status; Z17.1 Estrogen receptor negative status [ER-]
CPT/HCPCS: 96375; 96413; A4216; J1100; J1642; J7050; J9267

== ENCOUNTER 2017-11-20 15:35 | Day surgery (SDC) | payer BC ==
[2017-11-20] MEDS ORDERED: PACLitaxel 140 MG in Sodium Chloride 0.9% 250 ML 250 ML IVPB SCH (16:00)
[2017-11-20] MEDS ORDERED: Dexamethasone 10 MG in Sodium Chloride 0.9% 50 ML IVPB SCH (16:00)
[2017-11-20] MEDS ORDERED: Sodium Chloride 0.9% 20 ML ONE (16:10)
[2017-11-20] MEDS ORDERED: cloNIDine 0.2 MG TAB PO SCH (16:30)
[2017-11-20 18:50] VITALS: TEMP 98.2
[2017-11-20 19:01] VITALS: BP 220/139
== END 2017-11-20 19:03 | disposition home or self-care (01) ==
LOC: ONC/OP 15:35
PROVIDERS: ATTEND Internal Medicine Hematology & Oncology
DX: Z51.11 Encounter for antineoplastic chemotherapy (principal); C50.411 Malignant neoplasm of upper-outer quadrant of right female breast; K21.9 Gastro-esophageal reflux disease without esophagitis; I10 Essential (primary) hypertension; F17.210 Nicotine dependence, cigarettes, uncomplicated; Z79.82 Long term (current) use of aspirin; Z79.899 Other long term (current) drug therapy; Z88.0 Allergy status to penicillin; Z91.040 Latex allergy status
CPT/HCPCS: 36415; 80053; 82248; 83615; 84100; 84550; 96375; 96413; A4216; J1100; J1642; J7050; J9267

== ENCOUNTER 2017-11-27 12:09 | Day surgery (SDC) | payer BC ==
[2017-11-27] MEDS ORDERED: Sodium Chloride 0.9% 40 ML ONE (12:27)
[2017-11-27] MEDS ORDERED: PACLitaxel 140 MG in Sodium Chloride 0.9% 250 ML 250 ML IVPB SCH (12:30)
[2017-11-27] MEDS ORDERED: Dexamethasone 4 mg/ml Vial SLOW IVP SCH (12:30)
[2017-11-27 12:31] VITALS: BP 144/82; TEMP 98.9
[2017-11-27] MEDS ORDERED: Lorazepam 2 MG/ML VIAL SLOW IVP SCH (14:45)
== END 2017-11-27 14:50 | disposition home or self-care (01) ==
LOC: ONC/OP 12:09
PROVIDERS: ATTEND Internal Medicine Hematology & Oncology
DX: Z51.11 Encounter for antineoplastic chemotherapy (principal); C50.411 Malignant neoplasm of upper-outer quadrant of right female breast; D64.9 Anemia, unspecified; I10 Essential (primary) hypertension; K21.9 Gastro-esophageal reflux disease without esophagitis; F17.200 Nicotine dependence, unspecified, uncomplicated; Z79.899 Other long term (current) drug therapy; Z88.0 Allergy status to penicillin; Z91.040 Latex allergy status
CPT/HCPCS: 96375; 96413; A4216; J1100; J1642; J7050; J9267

== ENCOUNTER 2017-12-04 12:26 | Day surgery (SDC) | payer BC ==
[2017-12-04 12:39] VITALS: BP 147/108; TEMP 98.1
[2017-12-04] MEDS ORDERED: Dexamethasone 4 mg/ml Vial SLOW IVP SCH (12:45)
[2017-12-04] MEDS ORDERED: PACLitaxel 140 MG in Sodium Chloride 0.9% 250 ML 250 ML IVPB SCH (12:45)
== END 2017-12-04 15:26 | disposition home or self-care (01) ==
LOC: ONC/OP 12:26
PROVIDERS: ATTEND Internal Medicine Hematology & Oncology
DX: Z51.11 Encounter for antineoplastic chemotherapy (principal); C50.411 Malignant neoplasm of upper-outer quadrant of right female breast; K21.9 Gastro-esophageal reflux disease without esophagitis; I10 Essential (primary) hypertension; F17.210 Nicotine dependence, cigarettes, uncomplicated; Z17.1 Estrogen receptor negative status [ER-]; Z79.899 Other long term (current) drug therapy; Z88.0 Allergy status to penicillin; Z91.040 Latex allergy status
CPT/HCPCS: 96375; 96413; J1100; J1642; J7050; J9267

== ENCOUNTER 2017-12-11 13:25 | Day surgery (SDC) | payer BC ==
[2017-12-11] MEDS ORDERED: Dexamethasone 4 MG in Sodium Chloride 0.9% 50 ML SLOW IVP SCH (13:45)
[2017-12-11] MEDS ORDERED: PACLitaxel 140 MG in Sodium Chloride 0.9% 250 ML 250 ML IVPB SCH (13:45)
[2017-12-11] MEDS ORDERED: Sodium Chloride 0.9% 20 ML ONE (14:35)
== END 2017-12-11 16:05 | disposition home or self-care (01) ==
LOC: ONC/OP 13:25
PROVIDERS: ATTEND Internal Medicine Hematology & Oncology
DX: Z51.11 Encounter for antineoplastic chemotherapy (principal); C50.411 Malignant neoplasm of upper-outer quadrant of right female breast; I10 Essential (primary) hypertension; D64.9 Anemia, unspecified; K21.9 Gastro-esophageal reflux disease without esophagitis; F17.200 Nicotine dependence, unspecified, uncomplicated; Z79.899 Other long term (current) drug therapy
CPT/HCPCS: 96375; 96413; J1100; J1642; J7050; J9267

== ENCOUNTER 2017-12-18 11:53 | Day surgery (SDC) | payer BC ==
[2017-12-18] MEDS ORDERED: PACLitaxel 140 MG in Sodium Chloride 0.9% 250 ML 250 ML IVPB SCH (12:15)
[2017-12-18] MEDS ORDERED: Dexamethasone 10 MG/ML VIAL SLOW IVP SCH (12:15)
[2017-12-18 13:03] VITALS: BP 133/86; TEMP 98.2
== END 2017-12-18 13:55 | disposition home or self-care (01) ==
LOC: ONC/OP 11:53
PROVIDERS: ATTEND Internal Medicine Hematology & Oncology
DX: Z51.11 Encounter for antineoplastic chemotherapy (principal); C50.411 Malignant neoplasm of upper-outer quadrant of right female breast; I10 Essential (primary) hypertension; D64.9 Anemia, unspecified; K21.9 Gastro-esophageal reflux disease without esophagitis; Z91.040 Latex allergy status; Z88.0 Allergy status to penicillin; F17.200 Nicotine dependence, unspecified, uncomplicated; Z79.899 Other long term (current) drug therapy
CPT/HCPCS: 80053; 82248; 83615; 84100; 84550; 90471; 90686; 96375; 96413; G0008; J1100; J1642; J7050; J9267

== ENCOUNTER 2017-12-25 13:20 | Day surgery (SDC) | payer BC ==
[~2017-12-25 13:20] MED LIST: Dexamethasone 10 MG/ML VIAL SLOW IVP SCH; Dexamethasone 4 mg/ml Vial SLOW IVP SCH; PACLitaxel 140 MG in Sodium Chloride 0.9% 250 ML 250 ML IVPB SCH; Sodium Chloride 0.9% 30 ML ONE
== END 2017-12-25 15:40 | disposition home or self-care (01) ==
LOC: ONC/OP 13:20
PROVIDERS: ATTEND Internal Medicine Hematology & Oncology
DX: Z51.11 Encounter for antineoplastic chemotherapy (principal); C50.411 Malignant neoplasm of upper-outer quadrant of right female breast; D63.0 Anemia in neoplastic disease; F17.210 Nicotine dependence, cigarettes, uncomplicated; K21.9 Gastro-esophageal reflux disease without esophagitis; I10 Essential (primary) hypertension; Z88.0 Allergy status to penicillin; Z91.040 Latex allergy status; Z79.899 Other long term (current) drug therapy
CPT/HCPCS: 96375; 96413; J1100; J1642; J7050; J9267

== ENCOUNTER 2018-01-01 11:07 | Day surgery (SDC) | payer BC ==
[2018-01-01 11:25] VITALS: BP 140/76; TEMP 97.6
[2018-01-01] MEDS ORDERED: PACLitaxel 140 MG in Sodium Chloride 0.9% 250 ML 250 ML IVPB SCH (11:45)
[2018-01-01] MEDS ORDERED: Dexamethasone 4 mg/ml Vial SLOW IVP SCH (11:45)
[2018-01-01] MEDS ORDERED: Sodium Chloride 0.9% 20 ML ONE (11:57)
== END 2018-01-01 15:00 | disposition home or self-care (01) ==
LOC: ONC/OP 11:07
PROVIDERS: ATTEND Internal Medicine Hematology & Oncology
DX: Z51.11 Encounter for antineoplastic chemotherapy (principal); C50.411 Malignant neoplasm of upper-outer quadrant of right female breast; D64.9 Anemia, unspecified; I10 Essential (primary) hypertension; K21.9 Gastro-esophageal reflux disease without esophagitis; F17.200 Nicotine dependence, unspecified, uncomplicated; Z88.0 Allergy status to penicillin; Z91.040 Latex allergy status; Z79.899 Other long term (current) drug therapy
CPT/HCPCS: 96375; 96413; J1100; J1642; J7050; J9267

== ENCOUNTER 2018-01-08 13:12 | Day surgery (SDC) | payer BC ==
[2018-01-08] MEDS ORDERED: Dexamethasone 4 mg/ml Vial SLOW IVP SCH (13:30)
[2018-01-08] MEDS ORDERED: PACLitaxel 140 MG in Sodium Chloride 0.9% 250 ML 250 ML IVPB SCH (14:00)
[2018-01-08] MEDS ORDERED: Sodium Chloride 0.9% 20 ML ONE (14:40)
== END 2018-01-08 15:09 | disposition home or self-care (01) ==
LOC: ONC/OP 13:12
PROVIDERS: ATTEND Internal Medicine Hematology & Oncology
DX: Z51.11 Encounter for antineoplastic chemotherapy (principal); C50.411 Malignant neoplasm of upper-outer quadrant of right female breast; I10 Essential (primary) hypertension; D64.9 Anemia, unspecified; K21.9 Gastro-esophageal reflux disease without esophagitis; F17.200 Nicotine dependence, unspecified, uncomplicated; Z88.0 Allergy status to penicillin; Z91.040 Latex allergy status; Z79.899 Other long term (current) drug therapy
CPT/HCPCS: 96375; 96413; J1100; J1642; J7050; J9267

== ENCOUNTER 2018-03-05 11:24 | Emergency (ER) | payer BC ==
[2018-03-05] MEDS ORDERED: Ketorolac Tromethamine 30 MG/ML VIAL ONE (11:46)
--- NOTE | 2018-03-05 12:44 | RAD ---
RADIOGRAPH LEFT KNEE FOUR VIEWS: History: 48-year-old female with lateral traumatic knee pain. FINDINGS: There is a mildly displaced spiral fracture of the neck of the fibula. No fracture of the tibia or di stal femur. Joint space are maintained without erosions or osteophytes. No joint effusion. IMPRESSION: Acute or subacute, traumatic, mildly displaced, closed, oblique fracture of left fibular proximal met aphysis. POS: [facility]
--- NOTE | 2018-03-05 12:45 | RAD ---
TWO VIEWS LEFT TIBIA AND FIBULA: Date: 03-05-18 History: Left knee pain after a fall one week ago. FINDINGS: There is an obliquely oriented fracture involving the proximal left fibula with suggestion of slight impaction of fracture fragments. No additional fracture is visualized and there is no evidence of a d islocation. IMPRESSION: 1. Fracture of proximal left fibula. POS: [facility]
== END 2018-03-05 12:24 | disposition home or self-care (01) ==
LOC: ERS 11:24
DX: S82.432A Displaced oblique fracture of shaft of left fibula, initial encounter for closed fracture (principal); S82.442A Displaced spiral fracture of shaft of left fibula, initial encounter for closed fracture; S82.832A Other fracture of upper and lower end of left fibula, initial encounter for closed fracture; I10 Essential (primary) hypertension; F17.210 Nicotine dependence, cigarettes, uncomplicated; X50.1XXA Overexertion from prolonged static or awkward postures, initial encounter; Y92.000 Kitchen of unspecified non-institutional (private) residence as the place of occurrence of the external cause
CPT/HCPCS: 96372; J1885

== ENCOUNTER 2018-10-30 19:43 | Observation (INO) | payer SELFPAY ==
[~2018-10-30 19:43] MED LIST changes: -Dexamethasone 10 MG/ML VIAL SLOW IVP SCH; -Dexamethasone 4 mg/ml Vial SLOW IVP SCH; +ISOVUE-370 76%-LOCM 1 ML ONE; -PACLitaxel 140 MG in Sodium Chloride 0.9% 250 ML 250 ML IVPB SCH; -Sodium Chloride 0.9% 30 ML ONE
--- NOTE | 2018-10-30 20:25 | RAD ---
Chest 2 views HISTORY: Hypertension. FINDINGS: Cardiac silhouette and pulmonary vasculature are unremarkable. Mediastinum is midline with a left internal jugular Port-A-Cath. No confluent airspace consolidation, pneumothorax, or pleural fluid. IMPRESSION: No active cardiopulmonary abnormalities are demonstrated.
[2018-10-30] MEDS ORDERED: Aspirin Chewable 81 MG TAB ONE (20:39)
[2018-10-30] MEDS ORDERED: Nitroglycerin 2% Ointment 1 INCH/1 GM Packet ONE (20:39)
[2018-10-30 21:25] LABS: Band 3 % (5-11); Eosinophils 1 % (0-10); Hemoglobin 16.5 g/dL (12.0-16.0); Lymphocytes 10 % (21-51); MDiff Complete? YES; Mean Corpuscular HGB CONC 33.8 g/dL (32.0-36.0); Mean Corpuscular Hemoglobin 29.9 pg (27.0-31.0); Mean Corpuscular Volume 88.4 fL (78.0-98.0); Mean Platelet Volume 9.9 fL (7.4-10.4); Monocytes 10 % (0-10); Neutrophil 76 % (42-75); Platelet Count 39 thou/uL (130-400); Platelet Morphology Comment Appears Decreased; RBC Distribution Width 13.3 % (11.5-14.5); Red Blood Cell (RBC) Count 5.53 mill/uL (4.20-5.40); White Blood Cell (WBC) Count 4.8 thou/uL (4.8-10.8)
[2018-10-30 21:29] LABS: ALT (SGPT) 16 U/L (8-55); AST (SGOT) 17 U/L (5-34); Alkaline Phosphatase 127 U/L (40-150); Anion Gap 16 mmol/L (10-20); BUN (Urea Nitrogen) 18 mg/dL (7.0-18.7); Bilirubin, Total 0.8 mg/dL (0.2-1.2); CK (CPK) 88 U/L (29-168); Calc. Creatinine Clearance 0 mL/min (70-130); Calcium 10.3 mg/dL (7.8-10.44); Carbon Dioxide 24 mmol/L (22-29); Chloride 100 mmol/L (98-107); Estimated GFR-MDRD 81; Glucose 98 mg/dL (70-105); Lipase 17 U/L (8-78); Potassium 4.4 mmol/L (3.5-5.1); Sodium 136 mmol/L (136-145)
--- NOTE | 2018-10-30 22:55 | CT ---
CT arteriogram chest with IV contrast and 3-D imaging HISTORY: Chest pain. Dyspnea. FINDINGS: There is good contrast opacification of the pulmonary arteries and thoracic aorta with norm al branching of the great vessels at the aortic arch. Minimal bibasilar atelectasis. No pleural fluid or lobar consolidation. No mediastinal adenopathy. Right breast is surgically absent. IMPRESSION: No CT evidence of pulmonary embolus.
[2018-10-30] MEDS ORDERED: hydrALAZINE 20 MG/ML VIAL ONE (23:07)
[2018-10-31 00:36] LABS: Troponin I Less than 0.010 ng/mL (< 0.028)
[2018-10-31] MEDS ORDERED: cloNIDine 0.1 MG TAB ONE (01:23)
[2018-10-31] MEDS ORDERED: Ondansetron ODT 4 MG TAB SL PRN (01:58)
[2018-10-31] MEDS ORDERED: Ondansetron PF 4 MG/2 ML Vial IVP PRN (01:58)
[2018-10-31 02:27] VITALS: BMI 20.5
[2018-10-31 03:48] LABS: Troponin I Less than 0.010 ng/mL (< 0.028)
[2018-10-31] MEDS ORDERED: Aspirin Chewable 81 MG TAB PO SCH (09:00)
[2018-10-31] MEDS ORDERED: Guaifenesin DM 100-10/5 ML UDCUP PO PRN (09:11)
[2018-10-31] MEDS ORDERED: Senokot S 8.6-50 MG TAB PO PRN (09:11)
[2018-10-31] MEDS ORDERED: Bisacodyl 10 MG SUPP PR PRN (09:11)
[2018-10-31] MEDS ORDERED: Acetaminophen 325 MG TAB PO PRN (09:11)
[2018-10-31] MEDS ORDERED: Nitroglycerin 0.4 MG TAB (25 Tab Bottle) PO PRN (09:11)
[2018-10-31 11:55] LABS: Cardiac Risk 2.3 (Less than 4.5)
--- NOTE | 2018-10-31 15:27 | NM ---
EXAM: CARDIAC SPECT HISTORY: Chest pain TECHNIQUE: A myocardial perfusion scan was performed using the single isotope 1 day protocol with flo hnetium 99m sestamibi. [10 mCi] was injected intravenously for the rest exam followed by 30 mCi for the stress study. Pharmacologic stress with Lexiscan was monitored and interpreted by JUAN Rao FINDINGS: Homogeneous tracer distribution is seen in the myocardial segments on stress and rest image s without fixed or reversible defects. Gated SPECT LVEF: 50% Wall motion exam: Normal IMPRESSION: Normal myocardial perfusion scan
--- NOTE | 2018-10-31 15:34 | HP ---
PRIMARY CARE PHYSICIAN: Dr. Javy Chen. REASON FOR ADMISSION: Chest pain, hypertensive urgency. HISTORY OF PRESENTING ILLNESS: The patient gives history of being off her hypertension medications for last 3 days. She got them yesterday evening, but by around 05:30 p.m. while she was working at [employer], she got hot and sweaty. She had massive head lewis per patient. She also felt very nauseous. Her security supervisor checked her blood pressure, her systolic blood pressures were more than 170. The patient also developed retrosternal chest pain radiating to the back, which was 8/10 in intensity and lasted for nearly 30 minutes. It eased up by itself before EMS arrived. She has no complaints of cough or expectoration. No complaints of palpitation, PND, or orthopnea. She has had a prior treadmill stress test done 5 years back as far as she knows was normal. No complaints of cough or expectoration. No fever. PAST MEDICAL AND SURGICAL HISTORY: 1. History of breast cancer with right mastectomy and neoadjuvant chemotherapy before mastectomy done. 2. Depression. 3. GERD. 4. Tubal ligation. CURRENT MEDICATIONS: The patient takes; 1. Metoprolol 100 mg twice daily. 2. Citalopram 40 mg daily. 3. Protonix 20 mg daily. ALLERGIES: ALLERGIC TO LATEX AND PENICILLIN. PERSONAL HISTORY: Smokes 1 pack a day. Also, drinks 6 packs of beer daily. Denies substance use. FAMILY HISTORY: Mother has history of hypertension and diabetes and is living. She does not know much about her father. CODE STATUS: Full. REVIEW OF SYSTEMS: CONSTITUTIONAL: Negative for weight loss or gain, ability to conduct usual activities. SKIN: Negative for rash, itching. EYES: Negative for double vision, pain. ENT/MOUTH: Negative for nose bleeding, neck stiffness, pain, tenderness. CARDIOVASCULAR: Negative for palpitations, dyspnea on exertion, orthopnea. RESPIRATORY: Negative for shortness of breath, wheezing, cough, hemoptysis, fever or night sweats. GASTROINTESTINAL: Negative for poor appetite, abdominal pain, heartburn, nausea , vomiting, constipation, or diarrhea. GENITOURINARY: Negative for urgency, frequency, dysuria, nocturia. MUSCULOSKELETAL: Negative for pain, swelling. NEUROLOGIC/PSYCHIATRIC: Negative for anxiety, depression. ALLERGY/IMMUNOLOGIC: Negative for skin rash, bleeding tendency. PHYSICAL EXAMINATION: GENERAL: The patient is a 48-year-old female, who is currently not in any acute distress. VITAL SIGNS: Blood pressure on arrival was 226/133, pulse 70 per minute, respiratory rate 18 per minute, temperature 97.9 degrees Fahrenheit, saturating 100% on room air, current blood pressure is 150/80. NECK: Supple. No elevated JVD. HEENT: Eyes; extraocular muscles are intact. Pupils are reacting to light. Oral cavity, mucous membranes are moist. No exudates or congestion. CARDIOVASCULAR: S1 and S2 heard. Regular rhythm. Loud S2. RESPIRATORY: Air entry 1+ bilateral. Scattered rhonchi plus. No rales or wheezes. ABDOMEN: Soft. Bowel sounds heard. No tenderness, rigidity, or guarding. EXTREMITIES: No peripheral edema or calf tenderness. VASCULAR: Peripheral pulses 1+ bilateral. No ischemic ulcerations or gangrene. CENTRAL NERVOUS SYSTEM: No gross focal deficits noted. The patient is alert, awake, oriented well. PSYCHIATRIC: The patient's mood is euthymic. No hallucinations or delusions. LABORATORY AND DIAGNOSTIC DATA: EKG done shows normal sinus rhythm at 70 beats per minute. There is severe LVH strain pattern seen. White count of 4.8, H and H are 16 and 48, platelet count 39, MCV is 88 with 76% neutrophils. D-dimer was 1.3. Troponin x3 negative. BNP 212. Total cholesterol 151, triglycerides 135, LDL 57, HDL 67, lipase is 17, BUN 18, creatinine 0.7, serum glucose 98. CT angio of chest done, shows no evidence of PE. No consolidation or mediastinal adenopathy was seen. CLINICAL IMPRESSION AND PLAN: The patient will be under observation on telemetry for chest pain with uncontrolled hypertension due to noncompliance with medication. Her blood pressure is well controlled at present. She is placed back on her Lopressor 100 mg twice daily along with full-dose aspirin, Celexa, and Protonix. She is currently scheduled for a nuclear stress test and echo with 2D Doppler. If echo and stress test are normal, the patient will be shortly discharged home this evening and this will be a same-day admit and discharge if she goes home. We will continue to closely monitor her. I have counseled her regarding tobacco abuse and alcohol abuse as well. The patient has not had a followup with her oncologist despite having triple negative right breast cancer with prior mastectomy and neoadjuvant chemotherapy. She was advised to take chemotherapy after surgery, but has failed to do so due to insurance issues. She currently has insurance, but still has not followed up with her oncologist. She was counseled regarding the same. Stress test is -ve and she will be discharge home. Please note this is a same day admit and discharge summary under observation status. Job ID: [id number] MTDD
[2018-10-31 16:20] VITALS: TEMP 97.7
[2018-10-31 16:31] LABS: HBCM Index 0.07 S/CO (0-0.79); HBSAg Index 0.24 S/CO (0-0.99); Hep A IgM AB Non-Reactive (NonReactive); Hep A IgM S/CO 0.44 S/CO (0-0.79); Hep B Surf Ag Non-Reactive S/CO (NonReactive); Hep C IgG Ab Non-Reactive (NonReactive); Hep C Index 0.32 S/CO (0-0.79); Hepatitis B Core IgM Abs Non-Reactive (NonReactive)
[2018-10-31] MEDS ORDERED: Regadenoson 0.4 MG/5 ML SYRINGE ONE (17:07)
[2018-10-31 17:25] VITALS: BP 141/101
[2018-10-31] MEDS ORDERED: Famotidine 20 MG TAB PO SCH (21:00)
[2018-10-31] MEDS ORDERED: Metoprolol Tartrate 100 MG TAB PO SCH (21:00)
[2018-11-01] MEDS ORDERED: Citalopram 20 MG TAB PO SCH (09:00)
[2018-11-01] MEDS ORDERED: Aspirin 325 mg Enteric Coated Tablet PO SCH (09:00)
--- NOTE | 2018-11-03 01:28 | EKG ---
Test Reason : Blood Pressure : / mmHG Vent. Rate : 070 BPM Atrial Rate : 070 BPM P-R Int : 138 ms QRS Dur : 078 ms QT Int : 436 ms P-R-T Axes : 063 032 060 degrees QTc Int : 470 ms Normal sinus rhythm with sinus arrhythmia Voltage criteria for left ventricular hypertrophy Abnormal ECG Confirmed by TANIYA STONE ([id number]), digital editor BERTHA SANDRA ([id number]) on 11/03/2018 1:27:27 AM Referred By: Confirmed By:TANIYA STONE
== END 2018-10-31 17:35 | disposition home or self-care (01) ==
LOC: ERS 19:43 → 2SW 23:25
PROVIDERS: ADMIT Hospitalist; ATTEND Hospitalist
DX: R07.9 Chest pain, unspecified (principal); I16.0 Hypertensive urgency; I10 Essential (primary) hypertension; F32.9 Major depressive disorder, single episode, unspecified; K21.9 Gastro-esophageal reflux disease without esophagitis; Z79.899 Other long term (current) drug therapy; F17.210 Nicotine dependence, cigarettes, uncomplicated; Z88.0 Allergy status to penicillin; Z91.040 Latex allergy status; Z91.14 Patient's other noncompliance with medication regimen
CPT/HCPCS: 36415; 71046; 71275; 78452; 80053; 80061; 80074; 82550; 83690; 83880; 84484; 85025; 85379; 93005; 93017; 93306; 96374; 99406; A9500; G0378; J0360; J2785; Q9966

== ENCOUNTER 2018-11-20 20:19 | Emergency (ER) | payer BC, SELFPAY | END 2018-11-20 20:36 | disposition home or self-care (01) | LOC: ERS 20:19 | DX: I10 Essential (primary) hypertension (principal); F10.129 Alcohol abuse with intoxication, unspecified | CPT/HCPCS: 99283 ==

== ENCOUNTER 2024-01-12 12:02 | Emergency (ER) | payer BC ==
[2024-01-12] MEDS ORDERED: cloNIDine 0.1 MG TAB ONE (12:45)
[2024-01-12 13:01] LABS: #Basophils 0.05 10x3/uL (0.0-0.2); %Basophils 0.7 % (0.0-1.0); %Eosinophils 1.2 % (0.0-10.0); %Lymphocytes 30.3 % (21.0-51.0); %Monocytes 8.1 % (0.0-10.0); %Neutrophils 59.6 % (42.0-75.0); Hematocrit 43.7 % (36.0-47.0); Hemoglobin 14.7 g/dL (12.0-16.0); Mean Corpuscular HGB CONC 33.6 g/dL (32.0-36.0); Mean Corpuscular Hemoglobin 29.6 pg (27.0-31.0); Mean Corpuscular Volume 87.9 fL (78.0-98.0); Mean Platelet Volume 10.1 fL (7.4-10.4); Platelet Count 267 10x3/uL (130-400); RBC Distribution Width 13.7 % (11.5-14.5); Red Blood Cell (RBC) Count 4.97 mill/uL (4.20-5.40)
[2024-01-12 13:10] LABS: ALT (SGPT) 14 U/L (8-55); AST (SGOT) 16 U/L (5-34); Albumin 3.7 g/dL (3.5-5.0); Alkaline Phosphatase 80 U/L (40-110); Anion Gap 13 mmol/L (10-20); BUN (Urea Nitrogen) 15 mg/dL (9.8-20.1); Bilirubin, Total 0.5 mg/dL (0.2-1.2); Calc. Creatinine Clearance 0 mL/min (70-130); Calcium 8.8 mg/dL (7.8-10.44); Carbon Dioxide 24 mmol/L (22-29); Chloride 107 mmol/L (98-107); Estimated GFR 98; Glucose 113 mg/dL (70-105); Potassium 4.2 mmol/L (3.5-5.1); Protein, Total 6.7 g/dL (6.0-8.3); Sodium 140 mmol/L (136-145)
[2024-01-12 13:15] LABS: Troponin I Less than 0.010 ng/mL (< 0.028)
== END 2024-01-12 14:00 | disposition home or self-care (01) ==
LOC: ERS 12:02
DX: R04.0 Epistaxis (principal); I10 Essential (primary) hypertension; F17.210 Nicotine dependence, cigarettes, uncomplicated
CPT/HCPCS: 80053; 84484; 85025; 93005; 99283

== ENCOUNTER 2024-02-24 18:59 | Inpatient (IN) | payer BC ==
[2024-02-24 19:40] VITALS: BMI 13.7
[2024-02-24] MEDS: Labetalol HCl 100 MG/20 ML VIAL SLOW IVP PRN (19:57)
[2024-02-24] MEDS: Ketorolac Tromethamine 30 MG (1 mL) VIAL IVP PRN (19:58)
[2024-02-24] MEDS ORDERED: Nitroglycerin 0.4 MG TAB (25 Tab Bottle) SL PRN (20:24)
[2024-02-24 21:08] LABS: Troponin I Less than 0.010 ng/mL (< 0.028)
[2024-02-24] MEDS: hydrALAZINE 25 MG TAB PO SCH (21:12)
[2024-02-24] MEDS: Losartan 25 MG TAB PO SCH (21:13)
[2024-02-24] MEDS: HYDROcodone/Acetaminophen 5/325 mg Tablet PO SCH (21:13)
[2024-02-24] MEDS: Metoprolol Tartrate 100 MG TAB PO SCH (21:14)
[2024-02-25 01:25] LABS: Troponin I Less than 0.010 ng/mL (< 0.028)
[2024-02-25 07:18] LABS: #Basophils 0.06 10x3/uL (0.0-0.2); %Basophils 0.9 % (0.0-1.0); %Eosinophils 1.7 % (0.0-10.0); %Lymphocytes 30.1 % (21.0-51.0); %Monocytes 10.7 % (0.0-10.0); %Neutrophils 56.3 % (42.0-75.0); Hematocrit 46.1 % (36.0-47.0); Hemoglobin 15.5 g/dL (12.0-16.0); Mean Corpuscular HGB CONC 33.6 g/dL (32.0-36.0); Mean Corpuscular Hemoglobin 29.8 pg (27.0-31.0); Mean Corpuscular Volume 88.5 fL (78.0-98.0); Platelet Count 243 10x3/uL (130-400); RBC Distribution Width 13.4 % (11.5-14.5); Red Blood Cell (RBC) Count 5.21 mill/uL (4.20-5.40)
[2024-02-25 07:49] LABS: Anion Gap 13 mmol/L (10-20); BUN (Urea Nitrogen) 22 mg/dL (9.8-20.1); Calc. Creatinine Clearance 53 mL/min (70-130); Calcium 9.2 mg/dL (7.8-10.44); Carbon Dioxide 23 mmol/L (22-29); Cardiac Risk 2.5 (Less than 4.5); Chloride 112 mmol/L (98-107); Cholesterol 152 mg/dl (< 200 Desired); Estimated GFR 100; Glucose 101 mg/dL (70-105); HDL Cholesterol 62 mg/dL (>60 Neg Risk); LDL Cholesterol, Calculated 79 mg/dL; Sodium 144 mmol/L (136-145); Triglycerides 54 mg/dL (Less than 150)
[2024-02-25] MEDS: Acetaminophen 325 MG TAB PO PRN (08:41)
[2024-02-25] MEDS: Enoxaparin 40 MG (0.4 mL) SYRINGE SC SCH (08:42)
[2024-02-25] MEDS ORDERED: Regadenoson 0.4 MG/5 ML SYRINGE ONE (10:47)
[2024-02-25 11:04] VITALS: BMI 13.7
[2024-02-25] MEDS: HYDROcodone/Acetaminophen 5/325 mg Tablet PO PRN (12:20)
[2024-02-25] MEDS: Nicotine 21 MG PATCH TD SCH (18:19)
[2024-02-25] MEDS: Apixaban 2.5 MG TAB PO SCH (19:59)
[2024-02-25] MEDS: Famotidine 20 MG TAB PO SCH (20:00)
[2024-02-26 05:18] LABS: #Basophils 0.05 10x3/uL (0.0-0.2); %Basophils 0.8 % (0.0-1.0); %Eosinophils 1.2 % (0.0-10.0); %Lymphocytes 38.8 % (21.0-51.0); %Monocytes 8.7 % (0.0-10.0); %Neutrophils 50.3 % (42.0-75.0); Hematocrit 49.2 % (36.0-47.0); Hemoglobin 16.2 g/dL (12.0-16.0); Mean Corpuscular HGB CONC 32.9 g/dL (32.0-36.0); Mean Corpuscular Hemoglobin 29.5 pg (27.0-31.0); Mean Corpuscular Volume 89.5 fL (78.0-98.0); Mean Platelet Volume 10.5 fL (7.4-10.4); Platelet Count 231 10x3/uL (130-400); RBC Distribution Width 13.7 % (11.5-14.5)
[2024-02-26 05:39] LABS: Anion Gap 14 mmol/L (10-20); BUN (Urea Nitrogen) 14 mg/dL (9.8-20.1); Calc. Creatinine Clearance 54 mL/min (70-130); Calcium 9.2 mg/dL (7.8-10.44); Carbon Dioxide 22 mmol/L (22-29); Chloride 109 mmol/L (98-107); Estimated GFR 102; Glucose 90 mg/dL (70-105); Potassium 3.8 mmol/L (3.5-5.1); Sodium 141 mmol/L (136-145)
[2024-02-26] MEDS ORDERED: Enoxaparin 30 MG (0.3 mL) SYRINGE SC SCH (09:00)
[2024-02-26] MEDS: Morphine 2 MG/ML VIAL SLOW IVP PRN (11:27)
[2024-02-26] MEDS: hydrALAZINE 25 MG TAB PO SCH (15:22)
[2024-02-26] MEDS: Ondansetron PF 4 MG/2 ML Vial IVP PRN (19:30)
[2024-02-26] MEDS: hydrALAZINE 20 MG/ML VIAL SLOW IVP PRN (19:31)
[2024-02-27 08:37] VITALS: BP 115/65; TEMP 97.8
[2024-02-27 09:21] LABS: #Basophils 0.04 10x3/uL (0.0-0.2); %Basophils 0.6 % (0.0-1.0); %Eosinophils 1.6 % (0.0-10.0); %Lymphocytes 22.3 % (21.0-51.0); %Monocytes 12.2 % (0.0-10.0); %Neutrophils 63.2 % (42.0-75.0); Hematocrit 47.2 % (36.0-47.0); Hemoglobin 15.8 g/dL (12.0-16.0); Mean Corpuscular HGB CONC 33.5 g/dL (32.0-36.0); Mean Corpuscular Hemoglobin 29.3 pg (27.0-31.0); Mean Corpuscular Volume 87.6 fL (78.0-98.0); Mean Platelet Volume 10.1 fL (7.4-10.4); Platelet Count 265 10x3/uL (130-400); RBC Distribution Width 13.7 % (11.5-14.5); Red Blood Cell (RBC) Count 5.39 mill/uL (4.20-5.40)
[2024-02-27 09:38] LABS: Anion Gap 11 mmol/L (10-20); BUN (Urea Nitrogen) 16 mg/dL (9.8-20.1); Calc. Creatinine Clearance 59 mL/min (70-130); Calcium 9.4 mg/dL (7.8-10.44); Carbon Dioxide 24 mmol/L (22-29); Chloride 109 mmol/L (98-107); Estimated GFR 104; Glucose 70 mg/dL (70-105); Potassium 4.1 mmol/L (3.5-5.1); Sodium 140 mmol/L (136-145)
== END 2024-02-27 10:22 | disposition home or self-care (01) | DRG 305 ==
LOC: OBS 18:59 → INTOOBSV 18:59 → OBSVTOIN 02-25 17:17
PROVIDERS: ADMIT Internal Medicine; ATTEND Internal Medicine
DX: I16.0 Hypertensive urgency (principal); Z85.3 Personal history of malignant neoplasm of breast; Z79.01 Long term (current) use of anticoagulants; Z88.0 Allergy status to penicillin; Z91.040 Latex allergy status
CPT/HCPCS: 36415; 70450; 71045; 78452; 80048; 80053; 80061; 83735; 83880; 84484; 85025; 93005; 93017; 96372; 96374; A9502; G0378; J0360; J1650; J1885; J2272; J2405; J2785